=== PATIENT | female | born 1995 | race Caucasian/White ===

== ENCOUNTER 2019-10-30 18:41 | Emergency (ER) | payer OTHER ==
[2019-10-30] MEDS ORDERED: IBUPROFEN 800 MG TABLET PO ONE (19:02)
[2019-10-30] MEDS ORDERED: CEPHALEXIN 500 MG CAPSULE PO ONE (19:03)
--- NOTE | 2019-10-30 19:04 | ER Document Report ---
ED Medical Screen (RME) - General Chief Complaint: Breast Problem Stated Complaint: BREAST PAIN Time Seen by Provider: 10/30/19 19:02 Mode of Arrival: Ambulatory Information source: Patient Notes: Patient is 3 months and complains of right breast tenderness and redness with fever of 103 yesterday. Patient does complain of headache. Patient currently pumps. I have greeted and performed a rapid initial assessment of this patient. A comprehensive ED assessment and evaluation of the patient, analysis of test results and completion of the medical decision making process will be conducted by additional ED providers. - Related Data Allergies/Adverse Reactions: No Known Allergies Allergy (Unverified 10/30/19 18:48) Home Medications: denies Past Medical History - Social History Chew tobacco use (# tins/day): No Frequency of alcohol use: Occasional Drug Abuse: None Past Surgical History: Reports: Hx Appendectomy Physical Exam - Skin Skin irregularity: Erythema - Right breast 7 to 9 o'clock position
--- NOTE | 2019-10-30 19:37 | ER Document Report ---
ED Breast Problem - General Chief Complaint: Breast Problem Stated Complaint: BREAST PAIN Time Seen by Provider: 10/30/19 19:02 Mode of Arrival: Ambulatory Information source: Patient - HPI Notes: Patient presents with several days of right breast pain. She states she has noticed intense pain on the right lateral breast with some overlying redness. She states she is currently breast-feeding a 3-month-old child. She states that when she was approximately 6 months ago she had mastitis that responded to antibiotics orally. She denies any chronic medical conditions. She states that the right breast is constantly tender it is moderate in intensity. It is worse if touched and better if left alone. She has had some fevers with it. As well as sweats. No vomiting or diarrhea. No cough cold or congestion. She is also had some headache with it. The pain does radiate into her right chest. She is had no pus or discharge from the nipple. - Related Data Allergies/Adverse Reactions: No Known Allergies Allergy (Unverified 10/30/19 18:48) Home Medications: denies Past Medical History - General Information source: Patient - Social History Smoking Status: Current Some Day Smoker Chew tobacco use (# tins/day): No Frequency of alcohol use: Occasional Drug Abuse: None Family History: Reviewed & Not Pertinent Patient has suicidal ideation: No Patient has homicidal ideation: No Past Surgical History: Reports: Hx Appendectomy Review of Systems - Review of Systems Constitutional: Chills, Fever Cardiovascular: Chest pain. denies: Dyspnea Respiratory: denies: Cough, Short of breath -: Yes All other systems reviewed and negative Physical Exam - Vital signs Interpretation: Normal - General General appearance: Appears well, Alert - HEENT Head: Normocephalic, Atraumatic Eyes: Normal Pupils: PERRL - Respiratory Respiratory status: No respiratory distress Chest status: Nontender Breath sounds: Normal Chest palpation: Other - Left breast is unremarkable. Right breast has some erythema laterally. There is no nipple discharge or nipple abnormalities. The areola is unremarkable. The right breast is tender to palpation over the underlying erythema with some induration. - Cardiovascular Rhythm: Regular Heart sounds: Normal auscultation Murmur: No - Abdominal Inspection: Normal Distension: No distension Bowel sounds: Normal Tenderness: Nontender Organomegaly: No organomegaly - Back Back: Normal, Nontender - Extremities General upper extremity: Normal inspection, Nontender, Normal color, Normal ROM, Normal temperature General lower extremity: Normal inspection, Nontender, Normal color, Normal ROM, Normal temperature, Normal weight bearing. No: Graham's sign - Neurological Neuro grossly intact: Yes Cognition: Normal Orientation: AAOx4 [place] Coma Scale Eye Opening: Spontaneous [place] Coma Scale Verbal: Oriented [place] Coma Scale Motor: Obeys Commands [place] Coma Scale Total: 15 Speech: Normal Motor strength normal: LUE, RUE, LLE, RLE Sensory: Normal - Psychological Associated symptoms: Normal affect, Normal mood - Skin Skin Temperature: Warm Skin Moisture: Dry Skin Color: Other - normal except as noted Course - Re-evaluation Re-evalutation: 10/30/19 21:30 Case was discussed with radiologist. There is no evidence of abscess of the breast tissue. Therefore patient will be discharged home with oral antibiotics and follow-up with her FORENSIC TOXICOLOGIST. - Laboratory Result Diagrams: 10/30/19 19:30 10/30/19 19:30 - Diagnostic Test Radiology reviewed: Image reviewed, Reports reviewed Discharge - Discharge Clinical Impression: Mastitis, right, acute Condition: Stable Disposition: HOME, SELF-CARE Instructions: Mastitis (OM) Additional Instructions: Please call your FORENSIC TOXICOLOGIST doctor first thing in the morning to arrange follow-up Prescriptions: Cephalexin Monohydrate [Keflex 500 mg Capsule] 500 mg PO Q6H 10 Days #50 capsule Hydrocodone/Acetaminophen [[place] 5-325 mg Tablet] 1 tab PO Q6 PRN 3 Days #12 tablet PRN Reason: Forms: Return to Work
[2019-10-30 19:41] LABS: ABSOLUTE LYMPHOCYTES (AUTO) 0.9 10^3/uL (0.5-4.7); ABSOLUTE MONOCYTES (AUTO) 0.3 10^3/uL (0.1-1.4); ABSOLUTE NEUT (AUTO) 4.2 10^3/uL (1.7-8.2); BASOPHILS % (AUTO) 0.5 % (0-2); EOSINOPHILS % (AUTO) 0.1 % (0-6); HEMOGLOBIN 12.9 g/dL (12.0-15.5); LYMPHOCYTES % (AUTO) 16.3 % (13-45); MEAN CORPUSCULAR HEMOGLOBIN 28.7 pg (27.0-33.4); MEAN CORPUSCULAR VOLUME 82 fl (80-97); MONOCYTES % (AUTO) 5.8 % (3-13); PLATELET COUNT 212 10^3/uL (150-450); RED CELL DISTRIBUTION WIDTH 15.2 % (11.5-14.0); SEGMENTED NEUTROPHILS % (AUTO) 77.3 % (42-78); TOTAL CELLS COUNTED % (AUTO) 100 %; WHITE BLOOD COUNT 5.4 10^3/uL (4.0-10.5)
[2019-10-30 19:59] LABS: ANION GAP 11 (5-19); BLOOD UREA NITROGEN 8 mg/dL (7-20); CALCIUM 9.3 mg/dL (8.4-10.2); CARBON DIOXIDE 23 mmol/L (22-30); CHLORIDE 102 mmol/L (98-107); GLUCOSE 126 mg/dL (75-110); POTASSIUM 4.2 mmol/L (3.6-5.0)
--- NOTE | 2019-10-30 21:27 | RADIOLOGY REPORT (SQ) ---
EXAM DESCRIPTION: Ultrasound of the right breast in the area of redness from 6:00 to 10:00. CLINICAL HISTORY: 24 years Female, erythema/tender/rule out abscess COMPARISON: None. TECHNIQUE: Using a high frequency linear array transducer the area of clinical concern was evaluated. Color flow imaging was performed. FINDINGS: In the area of clinical concern the tissue is heterogeneous and ducts are noted. No definitive mass. No fluid collection or abscess. No significant hyperemia. IMPRESSION: No acute process. THIS REPORT CONTAINS FINDINGS THAT MAY BE CRITICAL TO PATIENT CARE: The findings were verbally discussed via telephone conference with SPARKLE TURNER at 8:24 PM CDT on 10/30/2019 .
[2019-10-30 21:59] VITALS: BP 126/68
== END 2019-10-30 21:58 | disposition home or self-care (01) ==
LOC: ER 18:41
DX: N61.0 Mastitis without abscess (principal); F17.200 Nicotine dependence, unspecified, uncomplicated
CPT/HCPCS: 36415; 76604; 80048; 85025; 87040; 99284